=== PATIENT | male | born 1975 | race Caucasian/White ===

== ENCOUNTER 2017-07-21 16:51 | Emergency (ER) | payer SELFPAY ==
[2017-07-21 17:18] VITALS: BP 142/89; PULSE 81; TEMP 98.4; BMI 32.5
--- NOTE | 2017-07-21 17:19 | PDOC ---
Rapid Medical Evaluation Time Seen by Provider: 07/21/17 17:15 Medical Evaluation: Allergies Allergy/AdvReac Type Severity Reaction Status Date / Time Sulfa (Sulfonamide Allergy Rash Verified 05/21/13 17:45 Antibiotics) 07/21/17 17:15 The patient presents with a chief complaint of: left leg pain x 3 years intermittently, constant x 3 days, xrays shows herniated in lumbar. Pt took no meds today. 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 States pain states in hip/inguinal and radiates down leg, worsened with standing and walking I have performed a brief in-person evaluation of this patient. Pertinent physical exam findings: ambulatory I have ordered the following: none The patient will proceed to the ED for further evaluation. Discharge Disposition - Diagnosis Left leg pain - Referrals Referrals: Aneudy Billy MD [Primary Care Provider] - - Patient Instructions - Post Discharge Activity
[2017-07-21] MEDS ORDERED: predniSONE 20 MG TABLET (UD) PO ONE (18:27)
[2017-07-21] MEDS ORDERED: KETOROLAC TROMETHAMINE 60 MG/2 ML VIAL IM ONE (18:27)
[2017-07-21] MEDS ORDERED: predniSONE 20 MG TABLET (UD) ONE (18:33)
[2017-07-21] MEDS ORDERED: KETOROLAC TROMETHAMINE 60 MG/2 ML VIAL ONE (18:33)
--- NOTE | 2017-07-21 18:36 | PDOC ---
History of Present Illness - General Chief Complaint: Pain Stated Complaint: LEG PAIN Time Seen by Provider: 07/21/17 17:15 History Source: Patient Exam Limitations: No Limitations - History of Present Illness Initial Comments: 07/21/17 18:31 Patient here with complaints of re-exacerbation of chronic back pain. 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 States comes and goes but past few days has progressively worsened. 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 Patient states there have been occasions where he is worried about bowel and bladder continence however has had no true incontinence. DEnies fever, denies any other symptoms Occurred: reports: other Severity: reports: moderate, severe Modifying Factors: improves with: pain medication Associated Symptoms (Fall): denies symptoms Past History - Travel Traveled outside of the country in the last 30 days: No Close contact w/someone who was outside of country & ill: No - Past Medical History Allergies/Adverse Reactions: Allergies Allergy/AdvReac Type Severity Reaction Status Date / Time Sulfa (Sulfonamide Allergy Rash Verified 07/21/17 17:15 Antibiotics) Home Medications: Ambulatory Orders Cyclobenzaprine HCl [Flexeril 10 mg] 10 mg PO BID PRN #14 tablet 07/21/17 NK [No Known Home Medication] 07/21/17 Naproxen [Naprosyn -] 500 mg PO BID #30 tablet 07/21/17 Prednisone [Deltasone -] 20 mg PO BID #10 tablet 07/21/17 COPD: No - Suicide/Smoking/Psychosocial Hx Smoking Status: No Smoking History: Never smoked Number of Cigarettes Smoked Daily: 0 Trauma Specific PMHX - Complaint Specific PMHX Back Injury: Yes Review of Systems - Review of Systems Able to Perform ROS?: Yes Is the patient limited [place] proficient: Yes Constitutional: Yes: Symptoms Reported, See HPI HEENTM: Yes: See HPI. No: Symptoms Reported Respiratory: No: Symptoms reported ABD/GI: Yes: Symptoms Reported, See HPI Musculoskeletal: Yes: Symptoms Reported, See HPI, Back Pain, Muscle Pain, Muscle Weakness Integumentary: No: Symptoms Reported All Other Systems: Reviewed and Negative *Physical Exam - Vital Signs Last Vital Signs Temp Pulse Resp BP Pulse Ox 98.4 F 81 19 142/89 99 07/21/17 17:15 07/21/17 17:15 07/21/17 17:15 07/21/17 17:15 07/21/17 17:15 - Physical Exam General Appearance: Yes: Nourished, Appropriately Dressed, Apparent Distress, Moderate Distress HEENT: positive: JAKY, Normal ENT Inspection, TMs Normal, Pharynx Normal Neck: positive: Supple. negative: Lymphadenopathy (R) Respiratory/Chest: positive: Lungs Clear Gastrointestinal/Abdominal: positive: Normal Bowel Sounds, Soft. negative: Tender Musculoskeletal: positive: Normal Inspection, Decreased Range of Motion (unable to bend at waist past ~ 30degrees ), Muscle Spasm. negative: Vertebral Tenderness Extremity: positive: Normal Capillary Refill, Normal Inspection. negative: Normal Range of Motion Integumentary: positive: Dry, Warm Neurologic: positive: performance improvement specialist II-XII NML intact, Fully Oriented, Alert, Normal Mood/ Affect, Normal Response, Motor Strength 5/5 Progress Note - Progress Note Progress Note: Review exacerbation of chronic back pain. We'll treat with NSAIDs and steroids, and add antispasmodic and encourage patient to follow-up *DC/Admit/Observation/Transfer Diagnosis at time of Disposition: Left leg pain Sciatica Qualifiers: Laterality: left Qualified Code(s): M54.32 - Sciatica, left side - Discharge Dispostion Disposition: HOME Condition at time of disposition: Stable Admit: No - Prescriptions Prescriptions: Cyclobenzaprine HCl [Flexeril 10 mg] 10 mg PO BID PRN #14 tablet PRN Reason: spasm Naproxen [Naprosyn -] 500 mg PO BID #30 tablet Prednisone [Deltasone -] 20 mg PO BID #10 tablet - Referrals Referrals: Aneudy Billy MD [Primary Care Provider] - Demian Harris MD [Non Staff, Medical] - Mustapha Shine MD [Staff Physician] - - Patient Instructions Printed Discharge Instructions: DI for Back Pain With Sciatica Additional Instructions: Rest, no heavy lifting or exercise until pain is resolved Hot soaks to neck and low back as often as possible/hot showers or Jacuzzis No massage or therapy until spasm is gone Continue Naprosyn 500 mg tablet every 8 hours for the next 3 days then as needed for pain and swelling Prednisone 40 mg daily for the next 5 days Cyclobenzaprine 1-10mg every 8 hours as needed for spasm If not significant improvement within 24 hours with medication and rest regime, followup with private physician for change in medications and /or therapy. - Post Discharge Activity Forms/Work/School Notes: Back to Work
== END 2017-07-21 19:12 | disposition home or self-care (01) ==
LOC: JERFT 16:51
PROC: 3E0233Z Introduction of Anti-inflammatory into Muscle, Percutaneous Approach (ICD-10-PCS; principal; 2017-07-21)
DX: M54.42 Lumbago with sciatica, left side (principal)
CPT/HCPCS: 99281-25

== ENCOUNTER 2019-05-28 20:40 | Emergency (ER) | payer BC ==
[2019-05-28 20:48] VITALS: BP 148/90; PULSE 99; TEMP 98; BMI 32.5
--- NOTE | 2019-05-28 21:04 | PDOC ---
History of Present Illness - General Chief Complaint: Penile Drainage Stated Complaint: BLOOD IN URINE Time Seen by Provider: 05/28/19 20:51 - History of Present Illness Initial Comments: 05/28/19 21:03 CHIEF COMPLAINT: hematospermia HISTORY OF PRESENT ILLNESS: 43 yo M with no PMH presents to [facility] with concerns of blood in his sperm since yesterday. Patient reports two episodes, one last night and one today. Denies any pain with ejaculation, denies any dysuria or difficulty voiding. Denies any other symptoms. No recent travel or sick contacts. PAST MEDICAL HISTORY: Denies past medical history FAMILY HISTORY: Denies SOCIAL HISTORY: Denies tobacco, alcohol, illicit drug use. SURGICAL HISTORY: Denies ALLERGIES: No known drug allergies REVIEW OF SYSTEMS General/Constitutional: Denies fever or chills. Denies weakness, weight change. HEENT: Denies change in vision. Denies ear pain or discharge. Denies sore throat. Cardiovascular: Denies chest pain or shortness of breath. Respiratory: Denies cough, wheezing, or hemoptysis. Gastrointestinal: Denies nausea, vomiting, diarrhea or constipation. Denies rectal bleeding. Genitourinary: Blood in sperm. Musculoskeletal: Denies joint or muscle swelling or pain. Denies neck or back pain. Skin and breasts: Denies rash or easy bruising. Neurologic: Denies headache, vertigo, loss of consciousness, or loss of sensation. Psychiatric: Denies depression or anxiety. PHYSICAL EXAM General Appearance: Well-appearing, appropriately dressed. No apparent distress , no intoxication. HEENT: EOMI, PERRLA, normal ENT inspection, normal voice, TMs normal, pharynx normal. No conjunctival pallor. No photophobia, scleral icterus. Neck: Supple. Trachea midline. No tenderness, rigidity, carotid bruit, stridor , lymphadenopathy, or thyromegaly. Respiratory/Chest: Lungs CTAB. No shortness of breath, chest tenderness, respiratory distress, accessory muscle use. No crackles, rales, rhonchi, stridor , wheezing, dullness Cardiovascular: RRR. S1, S2. No JVD, murmur, bradycardia, tachycardia. Vascular Pulses: Dorsalis-Pedis (R): 2+, Dorsalis-Pedis (L): 2+ Gastrointestinal/Abdominal: Normal bowel sounds. Abdomen soft, non-distended. No tenderness or rebound tenderness. No organomegaly, pulsatile mass, guarding , hernia, hepatomegaly, splenomegaly. Lymphatic: No adenopathy, tenderness. Musculoskeletal/Extremities: Normal inspection. FROM of all extremities, normal capillary refill. Pelvis Stable. No CVA tenderness. No tenderness to extremities, pedal edema, swelling, erythema or deformity. Integumentary: Appropriate color, dry, warm. No cyanosis, erythema, jaundice or rash Neurologic: terminal gauger supervisor II-XII intact. Fully oriented, alert. Appropriate mood/affect. Motor strength 5/5. No appreciable EOM palsy, facial droop or sensory deficit. 05/28/19 21:08 Past History - Past Medical History Allergies/Adverse Reactions: Allergies Allergy/AdvReac Type Severity Reaction Status Date / Time Sulfa (Sulfonamide Allergy Rash Verified 07/21/17 17:15 Antibiotics) Home Medications: Ambulatory Orders Cyclobenzaprine HCl [Flexeril 10 mg] 10 mg PO BID PRN #14 tablet 07/21/17 NK [No Known Home Medication] 07/21/17 Naproxen [Naprosyn -] 500 mg PO BID #30 tablet 07/21/17 predniSONE [Deltasone -] 20 mg PO BID #10 tablet 07/21/17 COPD: No - Psycho Social/Smoking Cessation Hx Smoking Status: No Smoking History: Never smoked Number of Cigarettes Smoked Daily: 0 Hx Alcohol Use: No Drug/Substance Use Hx: No *Physical Exam - Vital Signs Last Vital Signs Temp Pulse Resp BP Pulse Ox 98 F 99 H 20 148/90 98 05/28/19 20:44 05/28/19 20:44 05/28/19 20:44 05/28/19 20:44 05/28/19 20:44 Medical Decision Making - Medical Decision Making 05/28/19 21:10 43 yo M with no PMH presents to [facility] with concerns of blood in his sperm since yesterday. -UA, UCx -ct/gc Discharge - Discharge Information Problems reviewed: Yes Clinical Impression/Diagnosis: Hematospermia Condition: Stable Disposition: HOME - Admission No - Follow up/Referral Referrals: Aneudy Billy MD [Primary Care Provider] - Geremias Babin MD [Staff Physician] - - Patient Discharge Instructions - Post Discharge Activity Work/Back to School Note: Back to Work
[2019-05-28 21:18] LABS: URINE APPEARANCE CLEAR; URINE BILIRUBIN NEGATIVE (NEGATIVE); URINE COLOR YELLOW; URINE GLUCOSE (UA) NEGATIVE (NEGATIVE); URINE KETONE NEGATIVE (NEGATIVE); URINE LEUK ESTERASE NEGATIVE (NEGATIVE); URINE NITRITE NEGATIVE (NEGATIVE); URINE PROTEIN NEGATIVE (NEGATIVE)
== END 2019-05-28 21:33 | disposition home or self-care (01) ==
LOC: JERFT 20:40
DX: R36.1 Hematospermia (principal)
CPT/HCPCS: 36415; 81003; 87086; 87491; 87591; 99282-25

== ENCOUNTER 2019-07-06 12:07 | Emergency (ER) | payer BC ==
[2019-07-06 12:12] VITALS: BP 130/85; PULSE 77; TEMP 98.5; BMI 26.1
--- NOTE | 2019-07-06 13:03 | PDOC ---
*Physical Exam - Vital Signs Last Vital Signs Temp Pulse Resp BP Pulse Ox 98.5 F 77 19 130/85 100 07/06/19 12:10 07/06/19 12:10 07/06/19 12:10 07/06/19 12:10 07/06/19 12:10 - Physical Exam Comments: 07/06/19 13:02 The patient was examined by [PAT Khoury] under my direct supervision. I personally evaluated the patient. I concur with the above findings and the plan of care.
[2019-07-06] MEDS ORDERED: METOCLOPRAMIDE HCL INJECTION 10 MG/2 ML VIAL IM ONE (13:46)
[2019-07-06] MEDS ORDERED: KETOROLAC TROMETHAMINE 30 MG/1 ML VIAL IM ONE (13:46)
[2019-07-06] MEDS ORDERED: SODIUM CHLORIDE 0.9% 500 ML INFUS.BAG IV ONE (13:47)
[2019-07-06] MEDS ORDERED: METOCLOPRAMIDE HCL INJECTION 10 MG/2 ML VIAL ONE (13:57)
[2019-07-06] MEDS ORDERED: KETOROLAC TROMETHAMINE 30 MG/1 ML VIAL ONE (13:57)
[2019-07-06] MEDS ORDERED: KETOROLAC TROMETHAMINE 30 MG/1 ML VIAL IVPUSH ONE (13:59)
[2019-07-06] MEDS ORDERED: METOCLOPRAMIDE HCL INJECTION 10 MG/2 ML VIAL IVPUSH ONE (13:59)
--- NOTE | 2019-07-06 14:06 | PDOC ---
History of Present Illness - General Chief Complaint: Pain Stated Complaint: abd pain, diarrhea, headache Time Seen by Provider: 07/06/19 12:57 History Source: Patient Exam Limitations: No Limitations - History of Present Illness Initial Comments: 07/06/19 14:01 43-year-old male denies past medical history presents complaining of constant throbbing headache x2 weeks with nausea, photosensitivity and intermittent blurry vision. This morning had one episode of vomiting after brushing teeth. Denies rash, neck pain, recent travel, sick contacts, abdominal pain, diarrhea, fever, chills or any other symptoms. Has taken Anthony aspirin without resolution of headache, did not take anything for pain today. ROS: GENERAL/CONSTITUTIONAL: Minimal weakness, no dizziness HEAD, EYES, EARS, NOSE AND THROAT: Blurry vision, No ear pain or discharge, No sore throat CARDIOVASCULAR: No chest pain RESPIRATORY: No shortness of breath or cough GASTROINTESTINAL: nausea, no abdominal pain, no vomiting, no diarrhea or constipation GENITOURINARY: No dysuria MUSCULOSKELETAL: No neck or back pain SKIN: no rash NEUROLOGIC: Headache, no difficulty walking PE: GENERAL: well-appearing, NAD HEAD: NCAT EYES: Pupils equal, round and reactive to light, sclera anicteric, conjunctiva clear ENT: pharynx: no erythema, no exudate, uvula midline NECK: supple CHEST: nontender RESP: clear, no w/r/r CARDIO: rrr, no m/g/r ABD: +BS, soft, nontender, non distended BACK: no midline spinal ttp, no CVAT EXTREMITIES: Normal range of motion, no edema, 5/5 strength and sensation NEUROLOGICAL: Normal speech, normal gait SKIN: Warm, Dry Is this a multiple visit Asthma Patient?: No Past History - Past Medical History Allergies/Adverse Reactions: Allergies Allergy/AdvReac Type Severity Reaction Status Date / Time Sulfa (Sulfonamide Allergy Rash Verified 07/06/19 12:12 Antibiotics) Home Medications: Ambulatory Orders Cyclobenzaprine HCl [Flexeril 10 mg] 10 mg PO BID PRN #14 tablet 07/21/17 Naproxen [Naprosyn -] 500 mg PO BID #30 tablet 07/21/17 predniSONE [Deltasone -] 20 mg PO BID #10 tablet 07/21/17 Ibuprofen 600 mg PO Q6H #20 tablet 07/06/19 Metoclopramide HCl [Reglan] 10 mg PO Q6H 5 Days #15 tablet 07/06/19 COPD: No - Psycho Social/Smoking Cessation Hx Smoking Status: No Smoking History: Never smoked Number of Cigarettes Smoked Daily: 0 Information on smoking cessation initiated: No Hx Alcohol Use: No Drug/Substance Use Hx: No *Physical Exam - Vital Signs Last Vital Signs Temp Pulse Resp BP Pulse Ox 98.5 F 77 19 130/85 100 07/06/19 12:10 07/06/19 12:10 07/06/19 12:10 07/06/19 12:10 07/06/19 12:10 ED Treatment Course - LABORATORY CBC & Chemistry Diagram: 07/06/19 14:05 07/06/19 14:05 - RADIOLOGY Radiology Studies Ordered: Category Date Time Status HEAD CT WITHOUT CONTRAST [CT] Stat CT Scan 07/06/19 13:47 Ordered Medical Decision Making - Medical Decision Making 07/06/19 14:10 43-year-old male denies past medical history presents with constant headache with nausea, blurry vision, minimal weakness for 2 weeks, one episode of vomiting this morning. Neuro exam intact Will order CBC, CMP IV fluids, Reglan 10 mg IV, Toradol [address] without contrast Reassess 07/06/19 15:57 Patient feels better after IV fluids, Reglan and Toradol Discussed head CT and lab adults with patient Advised him to follow-up with his primary care doctor within 2 to 3 days Return precautions discussed Note for work provided Discharge - Discharge Information Problems reviewed: Yes Clinical Impression/Diagnosis: Headache Qualifiers: Headache type: unspecified Headache chronicity pattern: acute headache Intractability: not intractable Qualified Code(s): R51 - Headache Condition: Stable Disposition: HOME - Admission No - Additional Discharge Information Prescriptions: Ibuprofen 600 mg PO Q6H #20 tablet Metoclopramide HCl [Reglan] 10 mg PO Q6H 5 Days #15 tablet - Follow up/Referral - Patient Discharge Instructions Additional Instructions: Take ibuprofen 600 every 6 hours as needed for pain Take Reglan 10 mg every 6 hours as needed for nausea Follow-up with your doctor within 2 to 3 days Return to ED if worsening headache, nausea, vomiting, fever, chills or neck pain - Post Discharge Activity Work/Back to School Note: Back to Work
[2019-07-06 14:21] LABS: BASO % 0.3 % (0-2.0); EOS % 0.8 % (0-4.5); HEMOGLOBIN 17.2 GM/dL (11.7-16.9); LYMPH % 18.3 % (8-40); MCHC 35.1 g/dl (32.0-35.9); MEAN CELL VOLUME 91.3 fl (80-96); MEAN PLT VOLUME 9.4 fl (7.5-11.1); NEUT % 72.6 % (42.8-82.8); PLATELET COUNT 192 K/MM3 (134-434); RBC 5.37 M/mm3 (4.00-5.60); RDW 13.4 % (11.9-15.9); WHITE BLOOD COUNT 9.2 K/mm3 (4.0-10.0)
[2019-07-06 14:49] LABS: ALBUMIN 4.1 g/dl (3.4-5.0); BILIRUBIN,TOTAL 0.6 mg/dL (0.2-1); BLOOD UREA NITROGEN 12.9 mg/dL (7-18); CALCIUM 9.5 mg/dL (8.5-10.1); CREATININE 0.9 mg/dL (0.55-1.3); TOT PROT 7.5 g/dl (6.4-8.2)
== END 2019-07-06 16:37 | disposition home or self-care (01) ==
LOC: JER 12:07
PROC: 3E0333Z Introduction of Anti-inflammatory into Peripheral Vein, Percutaneous Approach (ICD-10-PCS; principal; 2019-07-06)
PROC: 3E033GC Introduction of Other Therapeutic Substance into Peripheral Vein, Percutaneous Approach (ICD-10-PCS; 2019-07-06)
PROC: 3E0337Z Introduction of Electrolytic and Water Balance Substance into Peripheral Vein, Percutaneous Approach (ICD-10-PCS; 2019-07-06)
DX: R51 Headache (principal)
CPT/HCPCS: 36415; 70450-TC; 80053; 85025; 99283-25

== ENCOUNTER 2020-09-14 17:00 | Emergency (ER) | payer BC ==
[2020-09-14 17:20] VITALS: BP 149/94; PULSE 82; TEMP 97.5; BMI 31.6
[2020-09-14] MEDS ORDERED: KETOROLAC TROMETHAMINE 60 MG/2 ML VIAL IM ONE (18:19)
[2020-09-14] MEDS ORDERED: KETOROLAC TROMETHAMINE 60 MG/2 ML VIAL ONE (18:35)
== END 2020-09-14 18:41 | disposition home or self-care (01) ==
LOC: JERFT 17:00
PROC: 3E0233Z Introduction of Anti-inflammatory into Muscle, Percutaneous Approach (ICD-10-PCS; principal; 2020-09-14)
DX: M54.40 Lumbago with sciatica, unspecified side (principal)
CPT/HCPCS: 72100-TC-FY; 99284-25

== ENCOUNTER 2022-07-18 18:54 | Emergency (ER) | payer BC ==
[2022-07-18 19:08] VITALS: BP 142/88; PULSE 82; RESP 18; TEMP 98.6; BMI 27.7
[2022-07-18] MEDS ORDERED: SODIUM CHLORIDE 0.9% 500 ML INFUS.BAG IV ONE (21:01)
[2022-07-18] MEDS ORDERED: ACETAMINOPHEN 1000 MG/100 ML BAG IVPB ONE (21:01)
[2022-07-18] MEDS ORDERED: FAMOTIDINE 20 MG/50 ML IVPB 20 MG/50 ML MG IVPB ONE (21:01)
[2022-07-18 22:29] LABS: BASO % 0.8 % (0-2.0); EOS % 1.5 % (0-4.5); HEMATOCRIT 49.1 % (35.4-49); HEMOGLOBIN 17.1 GM/dL (11.7-16.9); LYMPH % 25.7 % (8-40); MCH 32.4 pg (25.7-33.7); MCHC 34.7 g/dl (32.0-35.9); MEAN CELL VOLUME 93.3 fl (80-96); MEAN PLT VOLUME 9.8 fl (7.5-11.1); MONO % 8.2 % (3.8-10.2); NEUT % 63.8 % (42.8-82.8); PLATELET COUNT 202 10^3/uL (134-434); RBC 5.27 M/mm3 (4.00-5.60); WHITE BLOOD COUNT 8.2 K/mm3 (4.0-10.0)
[2022-07-18] MEDS ORDERED: ACETAMINOPHEN INJECTION 100 ML IVPB ONE (22:41)
[2022-07-18] MEDS ORDERED: FAMOTIDINE 10 MG/ML VIAL IVPB ONE (22:41)
[2022-07-18 22:45] LABS: INR 1.23 (0.83-1.09); PROTHROMBIN TIME (PATIENT) 14.2 SEC (9.7-13.0)
[2022-07-18 22:48] LABS: ACTIVATED PTT 28.9 SECONDS (25.2-36.5)
[2022-07-18 22:53] LABS: ALBUMIN 3.9 g/dl (3.4-5.0); CALCIUM 9.7 mg/dL (8.5-10.1); MAGNESIUM 2.1 mg/dL (1.8-2.4)
[2022-07-18 22:54] LABS: BLOOD UREA NITROGEN 11.6 mg/dL (7-18)
[2022-07-18 22:57] LABS: CREATININE 0.9 mg/dL (0.55-1.3)
[2022-07-18 22:58] LABS: BILIRUBIN,TOTAL 0.8 mg/dL (0.2-1)
[2022-07-19] MEDS ORDERED: metroNIDAZOLE 500 MG TABLET PO ONE (01:16)
[2022-07-19] MEDS ORDERED: CIPROFLOXACIN 500 MG TABLET (RESTRICTED TO ID) PO ONE (01:16)
[2022-07-19] MEDS ORDERED: metroNIDAZOLE 250 MG TABLET ONE (01:46)
== END 2022-07-19 02:00 | disposition home or self-care (01) ==
LOC: JER 18:54
PROC: 3E033GC Introduction of Other Therapeutic Substance into Peripheral Vein, Percutaneous Approach (ICD-10-PCS; principal; 2022-07-18)
DX: K57.92 Diverticulitis of intestine, part unspecified, without perforation or abscess without bleeding (principal)
CPT/HCPCS: 0241U-QW; 36415; 71045-TC-FY; 74177-TC; 80053; 83690; 83735; 84484; 85025; 85379; 85610; 85730; 93005; 93010; 99285-25; Q9967

== ENCOUNTER 2022-12-25 09:45 | Emergency (ER) | payer BC ==
[2022-12-25 09:54] VITALS: BP 134/87; PULSE 86; RESP 18; TEMP 98.9; BMI 31.1
[2022-12-25] MEDS ORDERED: DEXAMETHASONE SOD PHOSPHATE 10 MG/1 ML VIAL IM ONE (12:44)
[2022-12-25] MEDS ORDERED: KETOROLAC TROMETHAMINE 30 MG/1 ML VIAL IM ONE (12:44)
[2022-12-25] MEDS ORDERED: DEXAMETHASONE SOD PHOSPHATE 10 MG/1 ML VIAL ONE (12:47)
[2022-12-25] MEDS ORDERED: KETOROLAC TROMETHAMINE 30 MG/1 ML VIAL ONE (12:47)
== END 2022-12-25 13:04 | disposition home or self-care (01) ==
LOC: JERFT 09:45
PROC: 3E023GC Introduction of Other Therapeutic Substance into Muscle, Percutaneous Approach (ICD-10-PCS; principal; 2022-12-25)
PROC: 3E0233Z Introduction of Anti-inflammatory into Muscle, Percutaneous Approach (ICD-10-PCS; 2022-12-25)
DX: M79.605 Pain in left leg (principal); M54.32 Sciatica, left side
CPT/HCPCS: 93971-TC; 99284-25; J1100